=== PATIENT | male | born 1935 | race Caucasian/White ===

== ENCOUNTER → 2016-10-03 16:55 | Outpatient (CLI) | payer MEDICARE, BC ==
[2015-11-18 10:11] VITALS: BMI 20.5
[~2016-10-03 16:55] MED LIST: ASPIRIN 81 MG E81 MG PO; ATENOLOL25 MG PO; CARAFATE1 G PO; COZAAR50 MG PO; FLOMAX0.4 MG PO; HYDROCODON-ACE1 EAC7 PO; LASIX20 MG PO; LEVAQUIN500 MG PO; NEXIUM40 MG PO; NITROSTAT0.4 MG SL; OXYCODONE HCL5 MG PO; PLAVIX75 MG PO; POLYGESIC 5/5001 CAP PO; PRAVACHOL40 MG PO; PRAVASTATIN SOD10 MG PO; PRILOSEC20 MG PO; PROTONIX40 MG PO; TENORMIN25 MG PO; TENORMIN50 MG PO; VITAMIN B COMPL1 TA1 PO; VITAMIN B-12500 MCG PO; ZANTAC150 MG PO
== END | disposition home or self-care (01) ==
LOC: D.LABREF 16:55
DX: R31.9 Hematuria, unspecified (principal)

== ENCOUNTER → 2016-10-28 15:32 | Outpatient (CLI) | payer MEDICARE, BC ==
[2015-11-18 10:11] VITALS: BMI 20.5
[2016-10-28 21:05] LABS: APPEARANCE CLEAR (CLEAR); BILIRUBIN NEGATIVE (NEGATIVE); COLOR YELLOW (YELLOW); GLUCOSE NEGATIVE (NEGATIVE); KETONE NEGATIVE (NEGATIVE); LEUKOCYTE ESTERASE NEGATIVE (NEGATIVE); NITRITE NEGATIVE (NEGATIVE); PROTEIN NEGATIVE (NEGATIVE); UROBILINOGEN NORMAL (NORMAL)
== END | disposition home or self-care (01) ==
LOC: D.LABREF 15:32
PROVIDERS: Student in an Organized Health Care Education/Training Program
DX: R78.81 Bacteremia (principal)

== ENCOUNTER 2017-03-08 13:50 | Observation (INO) | payer MEDICARE, BC ==
[~2017-03-08] VITALS: Ht 172.7 cm; Wt 63.6 kg
--- NOTE | ~2017-03-08 | HEMODYNAMI ---
PATIENT:OPAL GR MEDICAL RECORD: [id number] : 31 LOCATION:[facility] D.[address] [facility]# [id number] ADMISSION DATE: 03/08/17 Generatedon:03/11/20178:51 Patient name: OPAL GR Patient #: [id number] SSN: [id number] : 1935 Date of study: 03/11/2017 Page: Of Hemodynamic Procedure Report Patient Data Patient Demographics Procedure consent was obtained First Name: OPAL Gender: Male Last Name: MAILE : 1935 [facility] Initial: A Age: 81 year(s) Patient #: [id number] Race: SSN: [id number] Additional ID: [id number] Contact details [address]: [address] [place] [address] State: [place] City: [place] Zip code: [address] Admission Admission Data Admission Date: 03/08/2017 Admission Time: 15:13 Arrival Date: 03/08/2017 Arrival Time: 15:13 Admit Source: Other Insurance Payor: Medicare Room #: D.2115 Lab Results Lab Result Date: 03/11/2017 Lab Result Time: 0:00 Biochemistry Name Units Result Min Max BUN mg/dl 35 --(----)-* 7 18 Creatinine mg/dl 1.9 --(----)-* 0.6 1.3 CBC Name Units Result Min Max Hemoglobin g/dl 11.1 *-(----)-- 13.5 17.5 Procedure Procedure Types Cath Procedure PCI Procedure Coronary Stent Initial Miscellaneous Procedures Moderate Sedation up to 30 minutes Procedure Description Procedure Date Procedure Date: 03/11/2017 Procedure Start Time: 8:31 Procedure End Time: 8:45 Procedure Staff Name Function David Mustafa MD Performing Physician Brooke Mckeon RT Scrub Vidhi Hand RN Nurse Nuria Arroyo RT Monitor Procedure Data Cath Procedure Fluoroscopy Diagnostic fluoroscopy Total fluoroscopy Time: 3.7 time: 3.7 min min Diagnostic fluoroscopy Total fluoroscopy dose: 257 dose: 257 mGy mGy Contrast Material Contrast Material Type Amount (ml) Isovue 300 47 Entry Location Entry Primary Successful Side Size Upsize Upsize Entry Closure Succes sful Closure Location (Fr) 1 (Fr) 2 (Fr) Remarks Device Remarks Femoral Right 6 Fr Exoseal artery Short Estimated blood loss: 5 ml Procedure Complications No complications Procedure Medications Medication Administration Route Dosage Oxygen NC 2 l/min Lidocaine 2% added to field 20 Heparin Flush Bag added to field 2 bags (1000units/500ml NS) 0.9% NaCl I.V. 100 ml/hr Versed I.V. 1 mg Fentanyl I.V. 50 mcg Heparin Bolus I.V. 4000 units Hemodynamics Rest HGB: 11.1 (g/dl) Heart Rate: 64 (bpm) Snapshots Pre Cath Intra NCS Post Cath Vital Signs Time Heart Resp SPO2 NIBP (mmHg) Rhythm Pain Sedation Rate (ipm) (%) Status Level (bpm) 8:21:34 62 18 100 192/75(148) NSR 0 (11) 10(A) , No pain 8:26:01 63 15 100 191/79(131) NSR 0 (11) 10(A) , No pain 8:30:33 61 18 100 156/61(112) NSR 0 (11) 10(A) , No pain 8:34:55 64 17 100 137/57(102) NSR 0 (11) 9(A) , No pain 8:39:09 60 17 100 135/55(101) NSR 0 (11) 9(A) , No pain 8:43:25 61 17 100 120/50(92) NSR 0 (11) 9(A) , No pain 8:50:21 64 16 100 157/63(132) NSR 0 (11) 10(A) , No pain Medications Time Medication Route Dose Verified Delivered Reason Notes Effectiveness by by 8:20:30 Oxygen NC 2 David Mosher used for l/min Ramsey Hand RN procedure 8:25:36 Lidocaine 2% added 20ml David Hernandez for local to vial Ramsey Mustafa MD anesthetic field 8:25:43 Heparin Flush added 2 David Hernandez used for Bag to bags Ramsey Mustafa MD procedure (1000units/500ml field NS) 8:25:52 0.9% NaCl I.V. 100 David Mosher Per physician ml/hr Ramsey Hand RN 8:31:05 Versed I.V. 1 mg David Mosher for sedation Ramsey Hand RN 8:31:10 Fentanyl I.V. 50 David Mosher for sedation mcg Ramsey Hand RN 8:36:31 Heparin Bolus I.V. 4000 David Mosher for verifie d units Rasmey Hand RN anticoagulation with dr mustafa Procedure Log Time Note 8:04:10 Informed consent obtained and on chart 8:04:15 Diagnostic Cath Status : Elective 8:04:34 Vidhi Hand RN sent for patient. Start room use. 8:04:34 Time tracking: Regular hours 8:04:38 Plan of Care:Hemodynamics will remain stable., Cardiac rhythm will remain stable., Comfort level will be maintained., Respiratory function will remain adequate., Patient/ family verbilizes understanding of procedure., Procedure tolerated without complication., Recovers from procedure without complications.. 8:19:10 Patient received from Med II to CCL 2 Alert and oriented. Tansferred to table in Supine position. 8:19:12 Warm blankets applied, and avelino hugger turned on for patient comfort. 8:19:12 Correct patient and procedure confirmed by team. 8:19:13 ECG and BP/O2 sat monitors applied to patient. 8:19:17 Baseline sample Acquired. 8:19:17 Vital chart was started 8:19:22 Rhythm: sinus rhythm , paced 8:19:23 Full Disclosure recording started 8:19:27 H&P Date Dictated: 03/11/2017 Within 30 days and on chart.. 8:19:28 Pre-procedure instructions explained to patient. 8:19:29 Pre-op teaching completed and patient verbalized understanding. 8:19:30 Family in waiting room. 8:19:39 Patient NPO since Midnight. 8:20:06 Is the patient allergic to Iodine/contrast media? No. 8:20:09 Was the patient premedicated? No 8:20:10 Is patient on blood thinner?Yes 8:20:13 ACC The patient was administered the following blood thiners within the last 24 hours: ACCPlavix 8:20:30 Oxygen 2 l/min NC was administered by Buffie Hand RN; used for procedure; 8:22:12 Patient diabetic? No. 8:22:16 Previous problem with sedation/anesthesia? No ? 8:22:20 Snore? No 8:22:39 Sleep apnea? No 8:22:40 Deviated septum? No 8:22:42 Opens mouth fully? Yes 8:22:43 Sticks out tongue? Yes 8:22:46 Airway obstruction? No ? 8:22:49 Dentures? No ? 8:22:52 Pre procedure: right dorsailis pedis pulse 1+ Palpable, but thready & weak; easily obliterated 8:23:28 Patient pain scale 0/10 ?. 8:23:34 IV patent on arrival in left forearm with 0.9% NaCl at [facility]. 8::56 Lab Result : BUN 35 mg/dl 8::56 Lab Result : Hemoglobin 11.1 g/dl 8::56 Lab Result : Creatinine 1.9 mg/dl 8::56 Hemodynamic formulas in Rest were re-calculated based on hemoglobin value from 03/11/2017 12:00:00 AM 8:24:39 Lab results completed and on chart. 8:24:44 Right groin area was prepped with chlora-prep and draped in sterile fashion 8:24:45 Alarms reviewed by R. N. 8:24:45 Sharps counted by scrub and verified by R.N. 8:25:36 Lidocaine 2% 20ml vial added to field was administered by David Mustafa MD; for local anesthetic; 8:25:43 Heparin Flush Bag (1000units/500ml NS) 2 bags added to field was administered by David Mustafa MD; used for procedure; 8:25:52 0.9% NaCl 100 ml/hr I.V. was administered by Vidhi Hand RN; Per physician; 8:27:48 Physician arrived 8:27:48 --------ALL STOP TIME OUT------ 8:27:49 Final Timeout: patient, procedure, and site verified with staff and physician. All members of the team are in agreement. 8:27:51 Right groin site verified by team. 8:27:54 Physical assessment completed. ASA score P 2 - A patient with mild systemic disease as per David Mustafa MD. 8:27:57 Sedation plan: IV Moderate Sedation Versed, Fentanyl 8:29:33 Use device set Femoral PCI 8:29:35 Acist Syringe opened to sterile field. 8:29:35 Acist Hand Control opened to sterile field. 8:29:35 Bag Decanter opened to sterile field. 8:29:36 Medline Cath Pack opened to sterile field. 8:29:36 Terumo 6Fr [place] Sheath opened to sterile field. 8:29:37 St Kunal 260cm J .035 wire opened to sterile field. 8:29:37 Merit BasixCompak Inflation Kit opened to sterile field. 8:29:37 Acist Manifold opened to sterile field. 8:29:38 Tegaderm 4 x 4 opened to sterile field. 8:30:00 Medtronic Launcher 6Fr HS II SH guide catheter opened to sterile field. 8:30:01 Pace Whisper J 300cm 0.014 guide wire opened to sterile field. 8:30:05 Procedure started. 8:31:05 Versed 1 mg I.V. was administered by Vidhi Hand RN; for sedation; 8:31:10 Fentanyl 50 mcg I.V. was administered by Vidhi Hand RN; for sedation; 8:31:52 Local anesthetic to right femoral artery with Lidocaine 2% by David Mustafa MD.INITIAL ACCESS ONLY 8:36:31 Heparin Bolus 4000 units I.V. was administered by Vihdi Hand RN; for anticoagulation; verified with dr mustafa 8:36:59 A 6 Fr Short sheath was inserted into the Right Femoral artery 8:37:06 6 Fr hs 2 sh guide catheter was inserted over the wire 8:37:13 whisper wire advanced. 8:40:51 Inflation Number: 1 A Giuseppe OTW 2.25 x 15 stent was prepped and advanced across the Dist RCA. The stent was deployed at 17 ELYSE for 0:10 (min:sec). 8:41:05 Inflation number: 2 The stent balloon was then re-inflated across the Dist RCA to 19 ELYSE for 0:10 (min:sec). 8:41:22 Inflation number: 1 The stent balloon was then re-inflated across the Mid RCA to 19 ELYSE for 0:10 (min:sec). 8:41:29 Inflation number: 2 The stent balloon was then re-inflated across the Mid RCA to 19 ELYSE for 0:10 (min:sec). 8:41:43 Inflation number: 3 The stent balloon was then re-inflated across the Mid RCA to 19 ELYSE for 0:10 (min:sec). 8:42:14 Inflation number: 3 The stent balloon was then re-inflated across the Dist RCA to 13 ELYSE for 0:13 (min:sec). 8:43:12 Inflation number: 1 The stent balloon was then re-inflated across the Prox RCA to 13 ELYSE for 0:10 (min:sec). 8:43:31 Stent catheter was removed intact over wire. 8:43:32 Wire removed. 8:43:32 Guide catheter removed. 8:43:39 Cordis 6Fr Exoseal opened to sterile field. 8:43:49 Sheath removed intact; hemostasis achieved with Exoseal to the Right Femoral artery. 8:43:52 Procedure ended.(Physican Out) 8:44:15 Fluoroscopy time 03.70 minutes. 8:45:02 Flurop Dose total: 257 8:45:02 Fluoroscopy dose: 257 mGy 8:45:08 Contrast amount:Isovue 300 47ml. 8:45:10 Sharps counted by scrub and verified by R.N. 8:45:10 Insertion/operative site no bleeding no hematoma. 8:45:13 Post-op/insertion site Right Femoral artery dressed using a 4 x 4 and Tegaderm. 8:45:16 Post right femoral artery:stable 8:45:18 Post Procedure Pulses reassessed and unchanged 8:45:21 Post procedure rhythm: unchanged. 8:45:23 Estimated blood loss: 5 ml 8:45:24 Post procedure instruction explained to patient.Patient verbalizes understanding. 8:45:25 Patient needs reinforcement of post procedure teaching. 8:45:39 Procedure type changed to Cath procedure, PCI procedure, Coronary Stent Initial, Miscellaneous Procedures, Moderate Sedation up to 30 minutes 8:45:40 Procedure and supply charges have been captured, reviewed, submitted and are correct. 8:45:44 Procedure Complication : No complications 8:45:46 Vital chart was stopped 8:45:47 See physician's report for complete and final results. 8:45:51 Report given to [facility]. 8:45:53 Patient transfered to [facility] with Stretcher. 8:45:55 Procedure ended. 8:45:55 Full Disclosure recording stopped 8:46:14 ACC-PCI Only Patient was given prescriptions, or instructed by David Mustafa MD to start/continue the following medications upon discharge: Plavix 8:46:16 End room use (Document Last) Intervention Summary Intervention Notes Time ActionType Lesion and Equipment Action# Pressure Duration Attributes Used 8:40:51 Place stent Dist RCA [place] OTW 1 17 00:10 2.25 x 15 stent 8:41:05 Reinflate Dist RCA Giuseppe OTW 2 19 00:10 stent 2.25 x 15 balloon stent 8:41:22 Reinflate Mid RCA [place] OTW 1 19 00:10 stent 2.25 x 15 balloon stent 8:41:29 Reinflate Mid RCA [place] OTW 2 19 00:10 stent 2.25 x 15 balloon stent 8:41:43 Reinflate Mid RCA Giuseppe OTW 3 19 00:10 stent 2.25 x 15 balloon stent 8:42:14 Reinflate Dist RCA [place] OTW 3 13 00:13 stent 2.25 x 15 balloon stent 8:43:12 Reinflate Prox RCA Giuseppe OTW 1 13 00:10 stent 2.25 x 15 balloon stent Device Usage Item Name Manufacture Quantity Catalog Hospital Part Current Minimal Lot# / Number Charge Number Stock Stock Serial# Code Acist Acist 1 45939 [id number] 154918 265525 20 Syringe [employer] Inc Acist Hand Acist 1 91182 918102 647908 813070 5 Arachno [employer] Bag Microtek 1 2002S 610337 15434 286646 5 Nanosphere. Medline Cardinal 1 [id number] 702160 70134 715987 5 My Own Crown Terumo 6Fr Terumo 1 [id number] 457874 952511 046534 [address] [place] [address] St Kunal 1 984147 941440 357256 704497 30 260cm J .035 wire Merit Merit 1 [id number] 336600 343692 470982 15 ebookpie Medical Inflation Kit Acist Acist 1 34184 826471 844859 307063 5 Templafy [employer] Inc Tegaderm 4 3M 1 1626W 683419 544285 679739 5 x 4 Medtronic Medtronic 1 [id number] 350489 97243 677852 1 Launcher 6Fr HS II SH guide catheter Pace Sanjeev 1 [id number] 502847 954300 479033 5 [facility] J Vascular 300cm 0.014 guide wire Villanova OTW Medtronic 1 [id number] 410892 63252 014686 5 [id number] 2.25 x 15 stent Cordis 6Fr Cardinal 1 EX600 365830 585299 021782 10 [facility] Signature Audit [place] Stage Time Signature Unsigned Intra-Procedure 03/11/2017 Nuria Arroyo 8:51:16 AM RT(R) Signatures Monitor : Nuria Arroyo RT Signature : Date : Time : [place] [id number] [place] [address]
--- NOTE | ~2017-03-08 | DS ---
PATIENT:OPAL SCHWAB :31 MEDICAL RECORD: [id number] DISCHARGE SUMMARY ADMISSION DATE: 03/08/17 DISCHARGE DATE: DATE OF DISCHARGE: 03/11/2017 DISCHARGE DIAGNOSES: 1. PTCA stent LAD. 2. PTCA stent RCA. 3. Unstable angina. 4. Coronary artery disease. 5. Hypertension. 6. Hyperlipidemia. HOSPITAL COURSE: Mr. Schwab presents with unstable angina, found to have 2-vessel coronary disease of the LAD and RCA, underwent successful PTCA stent of both territories, had an uneventful postop course, discharged home with the addition of aspirin and Plavix to his medical regimen. He will follow up with [facility] in 1 month. TRANSINT:[id number] Voice Confirmation ID: [id number] DOCUMENT ID: [id number] KASIE SCHNEIDER MD CC: [id number] DICTATION DATE: 03/11/1748 EMERGENCY OPERATOR: 03/11/17 0940 ADM IN [facility] [address] [id number]
--- NOTE | ~2017-03-08 | HP ---
PATIENT: OPAL SCHWAB MEDICAL RECORD: [id number] ACCOUNT: [id number] LOCATION:[address] : 31 ADMISSION DATE: 03/08/17 HISTORY AND PHYSICAL EXAMINATION DIAGNOSES: 1. Angina. 2. Coronary artery disease. 3. Previous percutaneous transluminal coronary angioplasty stent. 4. Hypertension. 5. Hyperlipidemia. HISTORY OF PRESENT ILLNESS: Mr. Schwab is status post PTCA stent approximately 4-5 years ago. He had 7 hours of chest discomfort yesterday, it escalated. He received sublingual nitros, his pain went away. His troponin is normal. He has not had any recurrence of the pain. PHYSICAL EXAMINATION: GENERAL APPEARANCE: Well-nourished, well-developed, appears stated age. Level of distress, comfortable. PSYCHIATRIC: Mental status, alert, normal affect. Orientation, oriented to time, place and person. EYES: Lids and conjunctiva, noninjected. No discharge, no pallor. ENT: Lips, teeth, gums, normal dentition. Oropharynx, no cyanosis, no pallor. NECK: Carotid arteries, bilateral normal upstroke, no bruits, no thrills. JUGULAR VEINS: No jugular venous pressure or distention. CERVICAL LYMPH NODES: Nontender, nonenlarged. THYROID: Not enlarged. Nontender. No nodules. LUNGS: Respiratory effort, unlabored. CHEST: Normal curvature. No thoracic deformity. No chest wall tenderness. Percussion, resonant. Auscultation, clear. No wheezes, no rales, no rhonchi. CARDIOVASCULAR: Precordial exam, nondisplaced. No heaves or pericardial thrills. Rate and rhythm, regular. Heart sounds, normal S1, normal S2. No S3, no gallop, no rub. Systolic murmur, not heard. Diastolic murmur, not heard. EXTREMITIES: No cyanosis, no edema. Peripheral pulses, full and equal in all extremities, except as noted. No bruits appreciated. ABDOMEN: Soft, nondistended. Normal aorta. No bruit. Nontender. No masses. Liver, nontender, no hepatomegaly. Spleen, nontender, no splenomegaly. MUSCULOSKELETAL: No joint tenderness. No joint swelling. No erythema. NEUROLOGICAL: Normal gait, normal strength, normal tone. SKIN: Warm and dry. REVIEW OF SYSTEMS: The patient reports easy bruising but reports no swollen glands. The patient reports no fever, no night sweats, no significant weight gain, no significant weight loss. No significant exercise tolerance. The patient reports no dry eyes, no irritation, no vision change. Patient reports no difficulty hearing and no ear pain. Patient reports no frequent nose bleeds or nose and sinus problems. Patient reports on arm pain on exertion. No shortness of breath while lying down. No history of heart murmur. Patient reports no cough, no wheezing or coughing up blood. Patient reports no abdominal pain, no vomiting. Normal appetite. No diarrhea and not vomiting blood. No nausea and no constipation. Patient reports no incontinence. No difficulty urinating. No hematuria. No increased frequency. Patient reports no muscle aches. No weakness, no arthralgias, no back pain. No swelling of the extremities. Patient reports no abnormal mole, no jaundice, no rashes. Reports HISTORY AND PHYSICAL [id number] GEASLIN,OPAL A no loss of consciousness. No weakness and no numbness. No seizures, dizziness, or headaches. The patient reports no depression, no sleep disturbance, feeling safe in a relationship and no alcohol abuse. Patient reports on fatigue. Reports no runny nose or sinus pressure. No itching, no hives, and no frequent sneezing. OVERALL IMPRESSIONS: Unstable angina for 7 hours yesterday. Most likely, he has recurrent hemodynamically significant coronary artery disease. We will proceed with coronary angiography. Further care depends upon findings of the angiography. TRANSINT:[id number] Voice Confirmation ID: [id number] DOCUMENT ID: [id number] KASIE SCHNEIDER MD CC: [id number] DICTATION DATE: 03/09/17937 [employer]ER: 03/09/17957 ADM IN [place] [id number] [place] [id number]
--- NOTE | ~2017-03-08 | HEMODYNAMI ---
PATIENT:OPAL GR MEDICAL RECORD: [id number] : 31 LOCATION:[facility] D.2115 [facility]# [id number] ADMISSION DATE: 03/08/17 Generatedon:03/10/20178:59 Patient name: OPAL GR Patient #: [id number] SSN: [id number] : 1935 Date of study: 03/10/2017 Page: Of Hemodynamic Procedure Report Patient Data Patient Demographics Procedure consent was obtained First Name: OPAL Gender: Male Last Name: MAILE : 1935 [facility] Initial: A Age: 81 year(s) Patient #: [id number] Race: SSN: [id number] Additional ID: [id number] Contact details [address]: [address] [place] [address] State: [place] City: [place] Zip code: [address] Admission Admission Data Admission Date: 03/08/2017 Admission Time: 15:13 Arrival Date: 03/08/2017 Arrival Time: 15:13 Admit Source: Other Insurance Payor: Medicare Room #: D.2115 Lab Results Lab Result Date: 03/10/2017 Lab Result Time: 0:00 Biochemistry Name Units Result Min Max BUN mg/dl 27 --(----)-* 7 18 Creatinine mg/dl 2 --(----)-* 0.6 1.3 CBC Name Units Result Min Max Hemoglobin g/dl 12.1 *-(----)-- 13.5 17.5 Procedure Procedure Types Cath Procedure Diagnostic Procedure LHC LHC w/Coronaries PCI Procedure Coronary Stent Initial Miscellaneous Procedures Moderate Sedation up to 30 minutes Peripheral Cath Diagnostic Procedure Cath Peripheral Renal Arteriogram Procedure Description Procedure Date Procedure Date: 03/10/2017 Procedure Start Time: 8:38 Procedure End Time: 8:55 Procedure Staff Name Function David Mustafa MD Performing Physician Maximo Potts RN Nurse Nuria Arroyo RT Monitor Deuce Fishman RT Scrub Indication Angina Procedure Data Cath Procedure Fluoroscopy Diagnostic fluoroscopy Total fluoroscopy Time: 4.9 time: 4.9 min min Diagnostic fluoroscopy Total fluoroscopy dose: 128 dose: 128 mGy mGy Contrast Material Contrast Material Type Amount (ml) Isovue 300 105 Entry Location Entry Primary Successful Side Size Upsize Upsize Entry Closure Land ccessful Closure Location (Fr) 1 (Fr) 2 (Fr) Remarks Device Remarks Radial Right 6 Fr Mechanical artery Short Compression Estimated blood loss: 5 ml Diagnostic catheters Device Type Used For End Catheter Placement Diagnostic Terumo Multi-vessel Optitorque 5Fr [place] 4.5 Angiography catheter Cordis Aqua 5Fr Bran Multi-vessel 125cm catheter Angiography Procedure Complications No complications Procedure Medications Medication Administration Route Dosage Oxygen NC 2 l/min Heparin Flush Bag added to field 2 bags (1000units/500ml NS) 0.9% NaCl I.V. 100 ml/hr Fentanyl I.V. 50 mcg Versed I.V. 1 mg Heparin Bolus I.V. 4000 units Radial Cocktail added to field 1 syringe (Verapomil 2mg/Nitro 400mcg/Heparin 1500units) Radial Cocktail I.A. 1 syringe (Verapomil 2mg/Nitro 400mcg/Heparin 1500units) Plavix P.O. 75 mg Hemodynamics Rest HGB: 12.1 (g/dl) Heart Rate: 72 (bpm) Pressure Samples Time Site Value (mmHg) Purpose Heart Use Rate(bpm) 8:41 LV 126/6,7 Snapshot 96 Snapshots Pre Cath Intra NCS Post Cath Vital Signs Time Heart Resp SPO2 NIBP (mmHg) Rhythm Pain Sedation Rate (ipm) (%) Status Level (bpm) 8:26:38 71 17 100 205/84(154) NSR 0 (11) 10(A) , No pain 8:31:08 72 17 100 177/74(137) NSR 0 (11) 10(A) , No pain 8:35:32 72 19 99 159/66(108) NSR 0 (11) 9(A) , No pain 8:39:46 75 17 99 146/66(114) NSR 0 (11) 9(A) , No pain 8:44:15 62 18 99 103/45(81) NSR 0 (11) 9(A) , No pain 8:48:23 59 19 98 122/56(99) NSR 0 (11) 9(A) , No pain 8:52:39 59 19 99 131/54(107) NSR 0 (11) 9(A) , No pain 8:57:44 59 18 100 173/73(134) NSR 0 (11) 9(A) , No pain Medications Time Medication Route Dose Verified Delivered Reason Notes Effectiveness by by 8:30:44 Oxygen NC 2 l/min Maximo Marsh Per physician Delroy Potts RN RN 8:30:54 Heparin Flush added 2 bags Maximo Marsh used for Bag to Delroy Potts RN procedure (1000units/500ml field RN NS) 8:31:05 0.9% NaCl I.V. 100 Maximo Marsh Per physician ml/hr Delroy Potts RN RN 8:33:16 Fentanyl I.V. 50 mcg Maximo Marsh for sedation Delroy Potts RN RN 8:33:24 Versed I.V. 1 mg Maximo Marsh for sedation Delroy Potts RN RN 8:38:58 Radial Cocktail added 1 Maximo Marsh used for (Verapomil to syringe Delroy Potts RN procedure 2mg/Nitro field RN 400mcg/Heparin 1500units) 8:40:07 Radial Cocktail I.A. 1 Maximo Bermudezrey for (Verapomil syringe Delroy Mustafa MD vasodilation 2mg/Nitro RN 400mcg/Heparin 1500units) 8:46:46 Heparin Bolus I.V. 4000 Maximo Marsh for units Delroy Potts RN anticoagulation RN 8:59:08 Plavix P.O. 75 mg Maximo Marsh for Delroy Potts RN antiplatelet RN therapy Procedure Log Time Note 7:56:30 Informed consent obtained and on chart 7:56:36 Diagnostic Cath Status : Elective 7:57:09 Indication : Angina 7:57:17 Admit Source: Other 7:57:22 Arrival Date: 03/08/2017 3:13:00 PM 7:57:29 Insurance Payor : Medicare 8:02:07 Lab Result : BUN 27 mg/dl 8:02:07 Lab Result : Hemoglobin 12.1 g/dl 8:02:07 Lab Result : Creatinine 2 mg/dl 8:02:12 Maximo Potts RN sent for patient. Start room use. 8:02:13 Time tracking: Regular hours 8:02:19 Plan of Care:Hemodynamics will remain stable., Cardiac rhythm will remain stable., Comfort level will be maintained., Respiratory function will remain adequate., Patient/ family verbilizes understanding of procedure., Procedure tolerated without complication., Recovers from procedure without complications.. 8:13:55 Patient received from Med II to CCL 3 Alert and oriented. Tansferred to table in Supine position. 8:13:56 Warm blankets applied, and avelino hugger turned on for patient comfort. 8:13:57 Correct patient and procedure confirmed by team. 8:13:57 ECG and BP/O2 sat monitors applied to patient. 8:24:15 Vital chart was started 8:26:57 Baseline sample Acquired. 8:27:00 Rhythm: sinus rhythm 8:27:02 Full Disclosure recording started 8:27:06 H&P Date Dictated: 03/10/2017 New H&P dictated by physician.. 8:27:08 Pre-procedure instructions explained to patient. 8:27:08 Pre-op teaching completed and patient verbalized understanding. 8:27:15 Family in waiting room. 8:27:20 Patient NPO since Midnight. 8:27:28 Is the patient allergic to Iodine/contrast media? No. 8:27:29 Was the patient premedicated? No 8:29:01 Is patient on blood thinner?Yes 8:29:02 ACC The patient was administered the following blood thiners within the last 24 hours: ACCPlavix 8:29:02 Patient diabetic? No. 8:29:05 Previous problem with sedation/anesthesia? No ? 8:29:07 Snore? No 8:29:08 Sleep apnea? No 8:29:09 Deviated septum? No 8:29:10 Opens mouth fully? Yes 8:29:10 Sticks out tongue? Yes 8:29:12 Airway obstruction? No ? 8:29:15 Dentures? No ? 8:29:18 Pre procedure: right dorsailis pedis pulse 1+ Palpable, but thready & weak; easily obliterated 8:29:29 Patient pain scale 0/10 ?. 8:29:34 IV patent on arrival in left forearm with 0.9% NaCl at O. 8:29:37 Lab results completed and on chart. 8:29:41 Right Radial & Right Groin area was prepped with chlora-prep and draped in sterile fashion 8:29:41 Alarms reviewed by R. N. 8:29:42 Sharps counted by scrub and verified by R.N. 8:30:44 Oxygen 2 l/min NC was administered by Maximo Potts RN; Per physician; 8:30:54 Heparin Flush Bag (1000units/500ml NS) 2 bags added to field was administered by Maximo Potts RN; used for procedure; 8:31:05 0.9% NaCl 100 ml/hr I.V. was administered by Maximo Potts RN; Per physician; 8:32:33 Physician arrived 8:32:33 --------ALL STOP TIME OUT------ 8:32:33 Final Timeout: patient, procedure, and site verified with staff and physician. All members of the team are in agreement. 8:32:35 Right Radial & Right Groin site verified by team. 8:32:38 Physical assessment completed. ASA score P 2 - A patient with mild systemic disease as per David Mustafa MD. 8:32:42 Sedation plan: IV Moderate Sedation Versed, Fentanyl 8:32:48 Use device set Radial Dx 8:32:49 Acist Syringe opened to sterile field. 8:32:50 Medline Cath Pack opened to sterile field. 8:32:50 Bag Decanter opened to sterile field. 8:32:50 Terumo 6Fr Slender Glidesheath opened to sterile field. 8:32:51 St Kunal 260cm J .035 wire opened to sterile field. 8:32:51 Acist Hand Control opened to sterile field. 8:32:51 Acist Manifold opened to sterile field. 8:32:51 Tegaderm 4 x 4 opened to sterile field. 8:32:52 MBrace Wrist Support opened to sterile field. 8:33:16 Fentanyl 50 mcg I.V. was administered by Maximo Potts RN; for sedation; 8:33:24 Versed 1 mg I.V. was administered by Maximo Potts RN; for sedation; 8:36:13 Zero performed for pressure channel P1 8:38:47 Procedure started. 8:38:55 Local anesthetic to right radial artery with Lidocaine 2% by David Mustafa MD.INITIAL ACCESS ONLY 8:38:58 Radial Cocktail (Verapomil 2mg/Nitro 400mcg/Heparin 1500units) 1 syringe added to field was administered by Maximo Potts RN; used for procedure; 8:39:23 A 6 Fr Short sheath was inserted into the Right Radial artery 8:40:07 Radial Cocktail (Verapomil 2mg/Nitro 400mcg/Heparin 1500units) 1 syringe I.A. was administered by David Mustafa MD; for vasodilation; 8:41:41 A Diagnostic [employer] Optitorque 5Fr [place] 4.5 catheter was advanced over the wire and used for Multi-vessel Angiography. 8:41:56 LV hemodynamics recorded. 8:41:57 LV gram done using BOSTON 8:42:00 Injector settings: Ml/sec: 5, Volume: 15, 8:42:07 EF : 60 % 8:42:16 LCA angiography performed. 8:42:19 Injector settings: Ml/sec: 3, Volume: 6, 8:43:27 RCA angiography performed. 8:43:30 Injector settings: Ml/sec: 3, Volume: 6, 8:43:40 Selero BasixCompak Inflation Kit opened to sterile field. 8:43:41 Pace Whisper J 300cm 0.014 guide wire opened to sterile field. 8:43:58 Catheter removed. 8:44:51 A Cordis Aqua 5Fr Bran 125cm catheter was advanced over the wire and used for Multi-vessel Angiography. 8:45:15 Bilateral renal angiography performed. 8:45:52 Injector settings: Ml/sec: 3, Volume: 6, 8:45:57 Catheter removed. 8:46:20 Cordis 6FR XBLAD 3.5 guide catheter opened to sterile field. 8:46:31 Proceeding to intervention. 8:46:40 6 Fr xblad 3.5 guide catheter was inserted over the wire 8:46:46 Heparin Bolus 4000 units I.V. was administered by Maximo Potts RN; for anticoagulation; 8:47:41 whisper wire advanced. 8:49:46 Inflation number: 1 A ESTmob [place] 2.0 X 30 balloon was prepped and advanced across the Mid LAD, then inflated to 15 ELYSE for 0:10 (min:sec). 8:50:17 Balloon removed over the wire. 8:52:22 Inflation Number: 2 A [place] OTW 2.25 x 38 stent was prepped and advanced across the Mid LAD. The stent was deployed at 13 ELYSE for 0:10 (min:sec). 8:53:04 Stent catheter was removed intact over wire. 8:53:05 Wire removed. 8:53:06 Guide catheter removed. 8:53:38 Terumo TR Band Standard opened to sterile field. 8:53:57 Sheath removed intact; hemostasis achieved with Mechanical Compression to the Right Radial artery. 8:54:00 Procedure ended.(Physican Out) 8:54:35 Fluoroscopy time 04.90 minutes. 8:54:42 Fluoroscopy dose: 128 mGy 8:54:42 Flurop Dose total: 128 8:54:46 Contrast amount:Isovue 300 105ml. 8:54:48 Sharps counted by scrub and verified by R.N. 8:54:50 TR band inflated with 12cc of air. 8:54:51 Insertion/operative site no bleeding no hematoma. 8:54:55 Post right radial artery:stable 8:54:56 Post Procedure Pulses reassessed and unchanged 8:54:59 Post procedure rhythm: unchanged. 8:55:01 Estimated blood loss: 5 ml 8:55:02 Post procedure instruction explained to patient.Patient verbalizes understanding. 8:55:03 Patient needs reinforcement of post procedure teaching. 8:55:34 Procedure type changed to Cath procedure, Diagnostic procedure, LHC, LHC w/Coronaries, PCI procedure, Coronary Stent Initial, Miscellaneous Procedures, Moderate Sedation up to 30 minutes, Peripheral Cath Diagnostic Procedure, Cath Peripheral, Renal Arteriogram 8:55:36 Procedure and supply charges have been captured, reviewed, submitted and are correct. 8:55:40 Procedure Complication : No complications 8:55:43 Vital chart was stopped 8:55:43 See physician's report for complete and final results. 8:55:44 Report given to Med II. 8:55:47 Patient transfered to Med II with Stretcher. 8:55:49 Procedure ended. 8:55:49 Full Disclosure recording stopped 8:56:25 ACC-PCI Only Patient was given prescriptions, or instructed by David Mustafa MD to start/continue the following medications upon discharge: Plavix 8:57:12 End room use (Document Last) 8:59:08 Plavix 75 mg P.O. was administered by Maximo Potts RN; for antiplatelet therapy; Intervention Summary Intervention Notes Time ActionType Lesion and Equipment Action# Pressure Duration Attributes Used 8:49:46 Inflate Mid LAD [place] 1 15 00:10 balloon Sci [place] 2.0 X 30 balloon 8:52:22 Place stent Mid LAD Giuseppe OTW 2 13 00:10 2.25 x 38 stent Device Usage Item Name Manufacture Quantity Catalog Number Hospital Part Current Mini [facility] Lot# / Charge Number Stock Stock Serial# Code Acist Acist 1 03345 [id number] 508435 871236 20 Syringe Medical Systems Inc Medline Cardinal 1 [id number] 377865 44851 686351 5 Cath Pack Health Bag Microtek 1 2002S 809179 39266 097431 5 Offerti [employer] Inc. Terumo 6Fr Terumo 1 [id number] 706431 869523 101968 [address] Kunal 1 773263 383000 140615 857003 30 260cm J .035 wire Acist Hand Acist 1 93902 900782 849224 069333 5 Control Medical Systems Inc Acist Acist 1 11431 096107 099774 290849 5 Manifold Medical Systems Inc Tegaderm 4 3M 1 1626W 269635 838051 791494 5 x 4 MBrace Advanced 1 140-0250-00 289000 72434 515866 5 Wrist Vascular Support Dynamics Diagnostic Terumo 1 27-9766 052420 879013 817207 5 Terumo Optitorque 5Fr [place] 4.5 catheter Merit Merit 1 CF6051 154277 758386 571426 15 BasixCompak Medical Inflation Kit Pace Pace 1 [id number] 751394 624426 541448 5 Whisper J Vascular 300cm 0.014 guide wire Cordis Aqua Cardinal 1 [id number] 165639 578400 326367 5 5Fr Health Bran 125cm catheter Cordis 6FR Cardinal 1 [id number] 612716 155057 229877 10 XBLAD 3.5 Health guide catheter Quincy Sci Quincy 1 [id number] 599052 953151 041728 1 [id number] [place] Scientific 2.0 X 30 balloon [place] OTW Medtronic 1 [id number] 509911 54528 278144 5 [id number] 2.25 x 38 stent Terumo TR Terumo 1 [id number] 000984 496983 060016 40 Band Standard Signature Audit [place] Stage Time Signature Unsigned Intra-Procedure 03/10/2017 Nuria Arroyo 8:59:28 AM RT(R) Signatures Monitor : Nuria Arroyo RT Signature : Date : Time : [facility] [address] [place] [address]
--- NOTE | ~2017-03-08 | OP ---
PATIENT NAME: OPAL GR MEDICAL RECORD: [id number] :31 LOCATION:D.M2 D.2115 ADMISSION DATE:03/08/17 SURGEON: KASIE SCHNEIDER MD DATE OF OPERATION: 03/10/2017 PROCEDURES: 1. PTCA stent LAD. 2. Left heart catheterization. 3. Selective coronary angiography. 4. Left ventriculogram. 5. Bilateral selective renal artery stenosis. INDICATION: Angina and coronary artery disease, renovascular hypertension with renal insufficiency. PROCEDURE IN DETAIL: After informed consent was obtained and after detailed explanation of risks, benefits as well as alternative therapies, the patient elected to proceed with angiogram and angioplasty. The right radial area is prepped and draped in normal sterile fashion. The right radial artery was cannulated via modified Seldinger technique with placement of 6-Latvian sheath. All catheters exchanged through this sheath. FINDINGS: 1. 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 2. The left renal artery is a solitary artery off the aorta, there is no significant renal artery stenosis. 3. Left ventriculogram was performed in standard 30-degree BOSTON view, reveals preserved cardiac wall motion, ejection fraction 55% to 60%. SELECTIVE CORONARY ANGIOGRAPHY: 1. Left main is with no significant angiographic disease. 2. Left anterior descending has a long area of 80% stenosis throughout the mid vessel. 3. Left circumflex has a diffuse disease. The previously placed stents are widely patent. 4. The right coronary has previously placed stents. There is up to 80% in-stent restenosis in the mid vessel. PTCA STENT OF THE LAD: The stent used was a 2.25x38 mm Giuseppe. Result was 0% residual stenosis. OVERALL IMPRESSION: Successful percutaneous transluminal coronary angioplasty stent of the left anterior descending going from 80% initial stenosis to 0% residual stenosis. PLAN: PTCA stent of the RCA and right renal in the near future. TRANSINT:[id number] Voice Confirmation ID: [id number] DOCUMENT ID: [id number] OPERATIVE REPORT [id number] OPAL GR KASIE SCHNEIDER MD CC: [id number] DICTATION DATE: 03/10/17 0857 SLASHER TENDER: 03/10/17 0936 [facility] [place] [id number] [place] [address]
--- NOTE | ~2017-03-08 | OP ---
PATIENT NAME: OPAL GR MEDICAL RECORD: [id number] :31 LOCATION:D.M2 D.2115 ADMISSION DATE:03/08/17 SURGEON: KASIE SCHNEIDER MD DATE OF OPERATION: 03/11/2017 PROCEDURES: 1. PTCA stent RCA. 2. Selective coronary angiography. INDICATION: Angina and coronary artery disease. PROCEDURE IN DETAIL: After informed consent was obtained and after detailed explanation of risks, benefits as well as alternative therapies, the patient elected to proceed with angiogram and angioplasty. The right femoral area was prepped and draped in normal sterile fashion. The right femoral artery was cannulated via modified Seldinger technique with placement of 6-Syriac sheath. All catheters exchanged through this sheath. FINDINGS: The right coronary has 85% stenosis in the mid distal vessel. This was addressed with a 2.25 x 15 mm Medtronic [place]. Result was 0% residual stenosis. OVERALL IMPRESSION: Successful percutaneous transluminal coronary angioplasty stent of the right coronary artery going from 85% initial stenosis to 0% residual. TRANSINT:[id number] Voice Confirmation ID: [id number] DOCUMENT ID: [id number] KASIE SCHNEIDER MD CC: [id number] DICTATION DATE: 03/11/17 0849 CHAIR PAD MAKER: 03/11/17 0902 ADM IN [place] [address] [place] [address]
[2017-03-08 14:13] LABS: BASOPHILS 0.1 % (0-2); EOSINOPHILS 0.3 % (0-7); HEMATOCRIT 35.4 % (42.0-54.0); HEMOGLOBIN 12.1 g/dL (13.5-17.5); IMMATURE GRANULOCYTES 0.2 % (0-5); MCH 30.6 pg (26.0-34.0); MCHC 34.2 g/dL (31.0-37.0); MCV 89.6 fL (80.0-100.0); MEAN PLATELET VOLUME 9.2 fL (7.4-10.4); NEUTROPHILS 88.4 % (40-80); RBC 3.95 10x6/uL (4.20-6.10); RDW 12.2 % (11.5-14.5); WBC 13.1 10x3/uL (4.8-10.8)
[2017-03-08 14:22] LABS: PLATELET COUNT 291 10x3/uL (130-400)
[2017-03-08 14:32] LABS: ALBUMIN 3.7 g/dL (3.4-5.0); ALKALINE PHOSPHATASE 86 U/L (46-116); ALT (SGPT) 58 U/L (10-68); BILIRUBIN - TOTAL 0.54 mg/dL (0.2-1.3); CALC OSMOLALITY 275 mosm/kg (275-300); CALCIUM 8.9 mg/dL (8.5-10.1); CARBON DIOXIDE 21.4 mmol/L (21.0-32.0); CHLORIDE - SERUM 100 mmol/L (98-107); GLUCOSE 114 mg/dL (74-106); POTASSIUM - SERUM 4.6 mmol/L (3.5-5.1); PROTEIN - SERUM 7.6 g/dL (6.4-8.2); SODIUM 135 mmol/L (136-145); UREA NITROGEN 27 mg/dL (7-18); eGFR NON AFRICAN AMERICAN 34 mL/min (90-120)
[2017-03-08 14:44] LABS: CHOLESTEROL, TOTAL 141 mg/dL (0-200); CKMB 0.1 U/L (0.0-3.6); CREATINE KINASE 43 UL (21-232); HDL CHOLESTEROL 28 mg/dL (32-96); LDL CHOLESTEROL 91 mg/dL (0-100); LDL-HDL RATIO 3.3 ratio (1.5-3.5); TRIGLYCERIDE 112 mg/dL (30-200); TROPONIN-I < 0.017 ng/mL (0.000-0.060)
--- NOTE | 2017-03-08 16:27 | NUR ---
TRANSFER FROM ER BY W/C. BLANCHEINTED TO ROOM. CALL LIGHT IN REACH. WILL CONT. PLAN OF CARE.
[2017-03-08] MEDS ORDERED: OMEPRAZOLE20 M1 PO (16:38)
[2017-03-08] MEDS ORDERED: MEGACE40 MG PO (16:39)
[2017-03-08] MEDS ORDERED: LEVOTHYROXINE125 MCG PO (16:39)
[2017-03-08] MEDS ORDERED: CENTRUM SILVER1 TA1 PO (16:41)
[2017-03-08] MEDS ORDERED: NIASPAN500 MG PO (16:41)
[2017-03-08 16:43] VITALS: BP 203/74; Ht 172.7 cm; Wt 63.6 kg
[2017-03-08 16:50] VITALS: BP 203/74
[2017-03-08 18:31] LABS: CKMB 0.1 U/L (0.0-3.6); CREATINE KINASE 39 UL (21-232)
[2017-03-08 18:32] LABS: TROPONIN-I 0.016 ng/mL (0.000-0.060)
[2017-03-08 20:00] VITALS: BP 183/80
[2017-03-09 00:18] VITALS: BP 111/52
[2017-03-09 01:20] LABS: CREATINE KINASE 32 UL (21-232); TROPONIN-I 0.019 ng/mL (0.000-0.060)
[2017-03-09 04:24] VITALS: BP 119/50
--- NOTE | 2017-03-09 07:30 | NUR ---
RECEIVED PT IN BED AAOX4 RESP UNLABORED DENIES ANY NEEDS OR DISCOMFORT AT THIS TIME NAD NOTED
[2017-03-09 08:00] VITALS: BP 191/62
[2017-03-09 12:00] VITALS: BP 132/49
[2017-03-09 16:00] VITALS: BP 131/58
--- NOTE | 2017-03-09 19:45 | NUR ---
PT RESTING IN BED. ALERT/ORIENTED. NONLABORED RESPIRATIONS ON ROOM AIR. O2 AVAILABLE BUT PT DOES NOT FEEL HE NEEDS IT. PIV TO LEFT WRIST. PT WILL BE NPO AT MIDNIGHT FOR HEART CATH IN AM. CONSENTS SIGNED AND ON CHART. SEE ASSESSMENT. CPOC. CALL LIGHT IN REACH.
--- NOTE | 2017-03-09 21:00 | NUR ---
BEDTIME MED GIVEN. NO OTHER NEEDS. PT DRINKING COFFEE. CALL LIGHT IN REACH.
[2017-03-09 21:15] VITALS: BP 142/65
[2017-03-10 01:29] VITALS: BP 152/65
--- NOTE | 2017-03-10 02:56 | NUR ---
RESTING IN BED WITH NO DISTRESS. RESPS EVEN/NONLABORED. NPO FOR LHC IN AM. MONITOR AND CPOC.
[2017-03-10 04:36] VITALS: BP 135/58
--- NOTE | 2017-03-10 07:30 | NUR ---
RECEIVED PT IN BED EYES CLOSED RESP UNLABORED SKIN W/D COLOR WNL NAD NOTED
[2017-03-10 08:00] VITALS: BP 135/48
--- NOTE | 2017-03-10 08:15 | NUR ---
TO SPLITTING MACHINE OPERATOR VIA BED IN STABLE CONDITION
--- NOTE | 2017-03-10 09:50 | NUR ---
RECEIVED PT BACK TO ROOM VIA BED VSS RT WRIST WITH TR BAND INTACT NO SIGNS OF BLEEDING PPP X4 NAD NOTED
[2017-03-10 12:00] VITALS: BP 136/50
[2017-03-10 16:00] VITALS: BP 144/59
[2017-03-10 19:00] VITALS: BP 178/73
[2017-03-11 00:46] VITALS: BP 153/66
[2017-03-11 05:12] VITALS: BP 141/59
[2017-03-11 05:54] LABS: BASOPHILS 0.2 % (0-2); EOSINOPHILS 2.5 % (0-7); HEMATOCRIT 32.3 % (42.0-54.0); HEMOGLOBIN 11.1 g/dL (13.5-17.5); IMMATURE GRANULOCYTES 0.3 % (0-5); LYMPHOCYTES 13.4 % (15-50); MCH 30.8 pg (26.0-34.0); MCHC 34.4 g/dL (31.0-37.0); MCV 89.7 fL (80.0-100.0); MEAN PLATELET VOLUME 9.8 fL (7.4-10.4); MONOCYTES 9.8 % (2-11); NEUTROPHILS 73.8 % (40-80); PLATELET COUNT 268 10x3/uL (130-400); RDW 12.5 % (11.5-14.5); WBC 9.5 10x3/uL (4.8-10.8)
[2017-03-11 06:33] LABS: ANION GAP 16.5 mmol/L (8-16); CALCIUM 8.1 mg/dL (8.5-10.1); CARBON DIOXIDE 20.9 mmol/L (21.0-32.0); CREATININE - SERUM 1.9 mg/dL (0.6-1.3); POTASSIUM - SERUM 4.4 mmol/L (3.5-5.1)
[2017-03-11 08:14] VITALS: BP 161/66
--- NOTE | 2017-03-11 09:15 | NUR ---
ALERT AND ORIENTED X4. RETURN TO ROOM VIA BED FROM WHEEL FILLER. T-97.6, BP-156/58, P-75, O2-100% 2L NC. FAMILY AT BEDSIDE. RT GROIN DRESSING CLEAN DRY INTACT. FREE FROM HEMATOMA. FREE FROM BLEEDING. PULSES PALPABLE. BED LOCKED AND LOW. CALL LIGHT IN REACH. TWO SIDERAILS UP. CONTINUE PLAN OF CARE AND SAFETY PRECAUTIONS.
[2017-03-11 12:05] VITALS: BP 129/53
[2017-03-11] MEDS ORDERED: PLAVIX75 MG PO (13:00)
--- NOTE | 2017-03-11 14:54 | NUR ---
ALERT AND ORIENTED X4. FAMILY AT BEDSIDE. RT GROIN DRESSING CLEAN DRY INTACT. NO HEMATOMA. NO BLEEDING. DC LT WRIST IV TIP INTACT. DISCHARGE INSTRUCTIONS. SIGNED ON CHART. ESCORT TO RIDE VIA WHEELCHAIR. REMAINS FREE FROM INJURY.
== END 2017-03-11 15:11 | disposition home or self-care (01) ==
LOC: D.ER 13:50 → D.M2 15:13 → OBSVTIME 15:13 → D.M2 03-11 15:11
PROVIDERS: Emergency Medicine; ADMIT Internal Medicine Interventional Cardiology
DX: I25.110 Atherosclerotic heart disease of native coronary artery with unstable angina pectoris (principal); I70.1 Atherosclerosis of renal artery; I10 Essential (primary) hypertension; E78.5 Hyperlipidemia, unspecified; T82.855A Stenosis of coronary artery stent, initial encounter; Y83.8 Other surgical procedures as the cause of abnormal reaction of the patient, or of later complication, without mention of misadventure at the time of the procedure
CPT/HCPCS: 93458; 36251; C9600 ×2

== ENCOUNTER 2018-02-17 16:46 | Inpatient (IN) | payer MEDICARE, BC ==
[~2018-02-17] VITALS: Ht 172.7 cm; Wt 57.6 kg
--- NOTE | ~2018-02-17 | EC ---
PATIENT:OPAL GR DATE OF SERVICE: 02/17/18 SEX: M MEDICAL RECORD: [id number] DATE OF : 31 LOCATION:D. D.211 AGE OF PATIENT: 82 ADMISSION DATE: 02/17/18 REFERRING PHYSICIAN: INTERPRETING PHYSICIAN: MARÍA CANTU MD ECHOCARDIOGRAM REPORT ECHO CHARGES 5 ECHO LIMITED Date: 02/18 CLINICAL DIAGNOSIS: SYNCOPE ECHOCARDIOGRAPHIC MEASUREMENTS (adult normal given) AC root (d.<3.7cm) cm LV Septum d (<1.2 cm> cm Valve Excursion cm LV Septum (systole) cm Left Atria (s.<4.0cm> 4.9 cm LVPW d(<1.2cm) cm RV (d.<2.3cm) 2.7 cm LVPW (sytole) cm LV diastole(<5.6CM) 5.2 cm MV E-F(>70mm/sec) cm LV systole 4.3 cm LVOT Diameter 2.0 cm MV exc.(>10mm) cm Est.ejection fraction (50-75%) % DOPPLER: LVIT cm/sec A 59.0 cm/sec E 49.0 cm/sec LA cm/sec RVSP 27 mmHg LVOT 107 cm/sec AOP1/2T m/s Asc. Ao 144 cm/sec RVOT cm/sec RA cm/sec PA cm/sec AV Gradient Peak 8.29 mmHg AV Mean 4.71 mmHg AV Area 2.7 cm MV Gradient Peak 2.16 mmHg MV Mean 0.60 mmHg MV Area cm COMMENTS: Assistant Hvac Mechanic: 2 JESSE LINCOLN Wood Preparation Supervisor: 4 Dr. Cantu TAPE# PACS Pericardial Effusion N DATE OF SERVICE: PROCEDURE: Transthoracic echocardiogram. FINDINGS: 1. The left ventricle has left ventricular hypertrophy. Ejection fraction is 55% to 60%. There is no obvious regional wall motion abnormality. The inflow characteristics are consistent with diastolic dysfunction. 2. The aortic valve is overall normal. 3. The mitral valve is normal. ECHOCARDIOGRAM REPORT [id number] OPAL GR 4. The left atrium is moderate to severely dilated. 5. Tricuspid valve has mild tricuspid regurgitation. 6. The right ventricle is normal size, shape, and function. 7. The right atrium is normal. 8. The pulmonic valve is not well visualized, but by Doppler measurements appears to have normal function. CONCLUSION: The patient has evidence of hypertensive heart disease with fptw-gd-gwowwrnd dilatation of the left atrium, otherwise normal echo. TRANSINT:[id number] Voice Confirmation ID: [id number] DOCUMENT ID: [id number] MARÍA CANTU MD at 1011 CC: [id number] DICTATION DATE: 02/19/18821 CIRCLE CUTTING SAW OPERATOR: 02/19/18 0909 ADM IN [place] [address] [place] [address]
[~2018-02-17 16:46] MED LIST changes: +CENTRUM SILVER1 TA1 PO; +LEVOTHYROXINE125 MCG PO; +MEGACE40 MG PO; +NIASPAN500 MG PO; +OMEPRAZOLE20 M1 PO
[2018-02-17] MEDS ORDERED: LIPITOR10 MG PO (16:55)
[2018-02-17 17:48] LABS: BASOPHILS 0.2 % (0-2); EOSINOPHILS 0 % (0-7); HEMOGLOBIN 12.8 g/dL (13.5-17.5); IMMATURE GRANULOCYTES 0.2 % (0-5); LYMPHOCYTES 19.8 % (15-50); MCH 30.8 pg (26.0-34.0); MCHC 33.7 g/dL (31.0-37.0); MCV 91.3 fL (80.0-100.0); MEAN PLATELET VOLUME 11.1 fL (7.4-10.4); NEUTROPHILS 63.8 % (40-80); RBC 4.16 10x6/uL (4.20-6.10); RDW 12.2 % (11.5-14.5); WBC 5.3 10x3/uL (4.8-10.8)
[2018-02-17 18:20] LABS: PLATELET COUNT 134 10x3/uL (130-400)
[2018-02-17 18:39] LABS: ALKALINE PHOSPHATASE 100 U/L (46-116); ALT (SGPT) 64 U/L (10-68); BILIRUBIN - TOTAL 0.29 mg/dL (0.2-1.3); CALC OSMOLALITY 290 mosm/kg (275-300); CARBON DIOXIDE 21.9 mmol/L (21.0-32.0); CHLORIDE - SERUM 104 mmol/L (98-107); CREATININE - SERUM 2.3 mg/dL (0.6-1.3); GLUCOSE 93 mg/dL (74-106); POTASSIUM - SERUM 4.8 mmol/L (3.5-5.1); PROTEIN - SERUM 7.1 g/dL (6.4-8.2); SODIUM 137 mmol/L (136-145); UREA NITROGEN 59 mg/dL (7-18); eGFR NON AFRICAN AMERICAN 29 mL/min (90-120)
[2018-02-17 18:48] LABS: CKMB 0.8 U/L (0.0-3.6); CREATINE KINASE 43 UL (21-232); MAGNESIUM - SERUM 1.9 mg/dL (1.8-2.4); PRO BNP 3197 pg/mL (0-450)
[2018-02-17 18:56] LABS: TROPONIN-I 0.236 ng/mL (0.000-0.060)
[2018-02-17 21:20] LABS: CKMB 1.5 U/L (0.0-3.6); CREATINE KINASE 84 UL (21-232)
[2018-02-17 21:21] LABS: TROPONIN-I 0.247 ng/mL (0.000-0.060)
[2018-02-17] MEDS ORDERED: POLYTRIM EYE DR10 ML EACH EYE (22:00)
[2018-02-17 23:29] LABS: APPEARANCE CLOUDY (CLEAR); BILIRUBIN NEGATIVE (NEGATIVE); COLOR YELLOW (YELLOW); GLUCOSE NEGATIVE (NEGATIVE); KETONE NEGATIVE (NEGATIVE); NITRITE NEGATIVE (NEGATIVE); PROTEIN 3+ mg/dL (NEGATIVE); UROBILINOGEN NORMAL (NORMAL)
[2018-02-17 23:31] LABS: BACTERIA MODERATE /hpf (NONE SEEN); EPITHELIAL CELLS 0-5 /hpf (0-5); RED CELLS - URINE 0-5 /hpf (0-5); WHITE CELLS - URINE 0-5 /hpf (0-5)
[2018-02-18] VITALS (7 sets, daily range): BP systolic 148–193; BP diastolic 62–85; Ht 172.7 cm; Wt 57.6 kg
[2018-02-18 04:40] LABS: HEMOGLOBIN 12.4 g/dL (13.5-17.5); MCH 30.2 pg (26.0-34.0); MCHC 33.5 g/dL (31.0-37.0); MEAN PLATELET VOLUME 11.6 fL (7.4-10.4); PLATELET COUNT 146 10x3/uL (130-400); RBC 4.11 10x6/uL (4.20-6.10); RDW 12.2 % (11.5-14.5)
[2018-02-18 04:43] LABS: WBC 2.7 10x3/uL (4.8-10.8)
[2018-02-18 05:01] LABS: ALBUMIN 2.6 g/dL (3.4-5.0); ALKALINE PHOSPHATASE 89 U/L (46-116); ALT (SGPT) 55 U/L (10-68); BILIRUBIN - TOTAL 0.32 mg/dL (0.2-1.3); CALC OSMOLALITY 288 mosm/kg (275-300); CALCIUM 7.9 mg/dL (8.5-10.1); CARBON DIOXIDE 23.1 mmol/L (21.0-32.0); CHLORIDE - SERUM 103 mmol/L (98-107); CKMB 2.3 U/L (0.0-3.6); CREATINE KINASE 125 UL (21-232); CREATININE - SERUM 2.2 mg/dL (0.6-1.3); GLUCOSE 106 mg/dL (74-106); POTASSIUM - SERUM 5.6 mmol/L (3.5-5.1); PROTEIN - SERUM 6.7 g/dL (6.4-8.2); SODIUM 136 mmol/L (136-145); TROPONIN-I 0.232 ng/mL (0.000-0.060); UREA NITROGEN 60 mg/dL (7-18); eGFR NON AFRICAN AMERICAN 30 mL/min (90-120)
[2018-02-18 05:08] LABS: LYMPHOCYTES 16 % (15-50); MONOCYTES 4 % (2-11); NEUTROPHILS 70 % (40-80); PLATELET ESTIMATE DECREASED
[2018-02-18 09:18] LABS: CKMB 2.1 U/L (0.0-3.6); CREATINE KINASE 88 UL (21-232)
[2018-02-18 09:28] LABS: TROPONIN-I 0.189 ng/mL (0.000-0.060)
[2018-02-18 15:41] LABS: % SATURATION 32 % (15-55); IRON 48 ug/dl (35-150); TOTAL IRON BIND CAPACITY 148 ug/dl (260-445); UNSAT IRON BIND CAPACITY 100 ug/dl (150-375)
[2018-02-18 16:22] LABS: MAGNESIUM - SERUM 2.1 mg/dL (1.8-2.4); THYROID STIMULATING HORMONE 0.03 uIU/mL (0.36-3.74)
[2018-02-19 05:50] VITALS: BP 151/64
[2018-02-19 05:51] LABS: INR 1.04 (0.85-1.17); PROTIME 13.2 SECONDS (11.6-15.0)
[2018-02-19 05:57] LABS: BASOPHILS 0.1 % (0-2); EOSINOPHILS 0 % (0-7); HEMATOCRIT 34.1 % (42.0-54.0); HEMOGLOBIN 11.5 g/dL (13.5-17.5); IMMATURE GRANULOCYTES 0.6 % (0-5); LYMPHOCYTES 10.3 % (15-50); MCH 30.3 pg (26.0-34.0); MCHC 33.7 g/dL (31.0-37.0); MEAN PLATELET VOLUME 11.6 fL (7.4-10.4); MONOCYTES 5.8 % (2-11); NEUTROPHILS 83.2 % (40-80); PLATELET COUNT 144 10x3/uL (130-400); RBC 3.79 10x6/uL (4.20-6.10); RDW 12.1 % (11.5-14.5)
[2018-02-19 06:01] LABS: WBC 6.8 10x3/uL (4.8-10.8)
[2018-02-19 06:08] LABS: ALBUMIN 2.5 g/dL (3.4-5.0); ANION GAP 15.2 mmol/L (8-16); BILIRUBIN - TOTAL 0.21 mg/dL (0.2-1.3); CALCIUM 7.9 mg/dL (8.5-10.1); CARBON DIOXIDE 18.4 mmol/L (21.0-32.0); CREATININE - SERUM 1.9 mg/dL (0.6-1.3); PRE-ALBUMIN 14.7 mg/dL (18.0-35.7); PROTEIN - SERUM 6.1 g/dL (6.4-8.2)
[2018-02-19 06:11] LABS: POTASSIUM - SERUM 4.6 mmol/L (3.5-5.1)
[2018-02-19 08:21] LABS: FOLATE (FOLIC ACID) - SERUM 19.9 ng/mL (>3.0)
[2018-02-19 08:25] VITALS: BP 152/69
[2018-02-19 11:43] VITALS: BP 141/66
[2018-02-19 15:10] VITALS: BP 132/63
[2018-02-19 20:00] VITALS: BP 163/80
[2018-02-20] VITALS: BP 157/56
[2018-02-20 04:00] VITALS: BP 185/68
[2018-02-20 05:46] LABS: BASOPHILS 0.1 % (0-2); EOSINOPHILS 0 % (0-7); HEMATOCRIT 37.1 % (42.0-54.0); HEMOGLOBIN 12.3 g/dL (13.5-17.5); IMMATURE GRANULOCYTES 0.3 % (0-5); LYMPHOCYTES 4.9 % (15-50); MCH 30.2 pg (26.0-34.0); MCHC 33.2 g/dL (31.0-37.0); MCV 91.2 fL (80.0-100.0); MEAN PLATELET VOLUME 11.8 fL (7.4-10.4); MONOCYTES 3.4 % (2-11); NEUTROPHILS 91.3 % (40-80); RBC 4.07 10x6/uL (4.20-6.10); RDW 12.2 % (11.5-14.5)
[2018-02-20 05:49] LABS: PLATELET COUNT 203 10x3/uL (130-400)
[2018-02-20 06:00] LABS: ANION GAP 18.6 mmol/L (8-16); CALCIUM 7.9 mg/dL (8.5-10.1); CARBON DIOXIDE 18.8 mmol/L (21.0-32.0); CREATININE - SERUM 1.9 mg/dL (0.6-1.3); POTASSIUM - SERUM 4.4 mmol/L (3.5-5.1)
[2018-02-20 08:09] VITALS: BP 186/83
[2018-02-20 11:46] VITALS: BP 197/88
[2018-02-20 15:14] VITALS: BP 209/87
[2018-02-20 20:01] VITALS: BP 176/79
[2018-02-21] VITALS (7 sets, daily range): BP systolic 130–187; BP diastolic 69–83
[2018-02-21 05:14] LABS: BASOPHILS 0.1 % (0-2); EOSINOPHILS 0 % (0-7); HEMATOCRIT 32.3 % (42.0-54.0); HEMOGLOBIN 10.8 g/dL (13.5-17.5); IMMATURE GRANULOCYTES 0.3 % (0-5); LYMPHOCYTES 4.4 % (15-50); MCH 29.9 pg (26.0-34.0); MCHC 33.4 g/dL (31.0-37.0); MCV 89.5 fL (80.0-100.0); MEAN PLATELET VOLUME 11.2 fL (7.4-10.4); MONOCYTES 4.4 % (2-11); NEUTROPHILS 90.8 % (40-80); PLATELET COUNT 189 10x3/uL (130-400); RBC 3.61 10x6/uL (4.20-6.10); RDW 12.2 % (11.5-14.5); WBC 10.3 10x3/uL (4.8-10.8)
[2018-02-21 05:29] LABS: ANION GAP 13.5 mmol/L (8-16); CALCIUM 7.2 mg/dL (8.5-10.1); CARBON DIOXIDE 22.1 mmol/L (21.0-32.0); CREATININE - SERUM 1.5 mg/dL (0.6-1.3)
[2018-02-21 05:37] LABS: POTASSIUM - SERUM 3.6 mmol/L (3.5-5.1)
[2018-02-22 04:16] VITALS: BP 183/78
[2018-02-22 05:35] LABS: BASOPHILS 0 % (0-2); EOSINOPHILS 0 % (0-7); HEMATOCRIT 35.1 % (42.0-54.0); HEMOGLOBIN 11.7 g/dL (13.5-17.5); IMMATURE GRANULOCYTES 0.3 % (0-5); LYMPHOCYTES 4.2 % (15-50); MCH 30.1 pg (26.0-34.0); MCHC 33.3 g/dL (31.0-37.0); MCV 90.2 fL (80.0-100.0); MEAN PLATELET VOLUME 11.2 fL (7.4-10.4); MONOCYTES 2.9 % (2-11); NEUTROPHILS 92.6 % (40-80); PLATELET COUNT 198 10x3/uL (130-400); RBC 3.89 10x6/uL (4.20-6.10); RDW 12.2 % (11.5-14.5); WBC 9.9 10x3/uL (4.8-10.8)
[2018-02-22 06:00] LABS: ANION GAP 13.9 mmol/L (8-16); CALCIUM 7.2 mg/dL (8.5-10.1); CARBON DIOXIDE 23.3 mmol/L (21.0-32.0); CREATININE - SERUM 1.5 mg/dL (0.6-1.3); POTASSIUM - SERUM 3.2 mmol/L (3.5-5.1)
[2018-02-22 07:49] VITALS: BP 130/72
[2018-02-22 11:03] VITALS: BP 124/69
[2018-02-22 20:00] VITALS: BP 189/89
[2018-02-23 04:17] VITALS: BP 197/92
[2018-02-23 06:42] LABS: BASOPHILS 0 % (0-2); EOSINOPHILS 0 % (0-7); HEMATOCRIT 34.7 % (42.0-54.0); HEMOGLOBIN 11.5 g/dL (13.5-17.5); IMMATURE GRANULOCYTES 0.4 % (0-5); LYMPHOCYTES 2.7 % (15-50); MCH 29.6 pg (26.0-34.0); MCHC 33.1 g/dL (31.0-37.0); MCV 89.2 fL (80.0-100.0); MEAN PLATELET VOLUME 10.9 fL (7.4-10.4); MONOCYTES 2.4 % (2-11); NEUTROPHILS 94.5 % (40-80); PLATELET COUNT 207 10x3/uL (130-400); RBC 3.89 10x6/uL (4.20-6.10); RDW 12.2 % (11.5-14.5)
[2018-02-23 06:44] LABS: WBC 12.8 10x3/uL (4.8-10.8)
[2018-02-23 07:07] LABS: ANION GAP 10.4 mmol/L (8-16); CALCIUM 7.1 mg/dL (8.5-10.1); CARBON DIOXIDE 24.4 mmol/L (21.0-32.0); CREATININE - SERUM 1.4 mg/dL (0.6-1.3)
[2018-02-23 07:09] LABS: POTASSIUM - SERUM 3.8 mmol/L (3.5-5.1)
[2018-02-23 07:47] VITALS: BP 171/79
[2018-02-23 11:00] VITALS: BP 166/82
[2018-02-23] MEDS ORDERED: TENORMIN50 MG PO (13:32)
[2018-02-23] MEDS ORDERED: PEPCID20 MG PO (13:33)
[2018-02-23] MEDS ORDERED: TRAZODONE HCL50 MG PO (13:33)
[2018-02-23] MEDS ORDERED: CARAFATE1 G/10 ML PO (13:34)
[2018-02-23] MEDS ORDERED: FLORAJEN3 CAPS460 MG PO (13:35)
[2018-02-23] MEDS ORDERED: PREDNISONE10 MG PO (13:36)
[2018-02-23] MEDS ORDERED: HYDRALAZINE HCL10 MG PO (13:37)
[2018-02-23] MEDS ORDERED: ROCEPHIN 1 GM/D51 G1 IV (13:39)
== END 2018-02-23 18:30 | DRG 391 ==
LOC: D.ER 16:46 → D.M2 20:47
PROVIDERS: Family Medicine; Internal Medicine Gastroenterology; Internal Medicine Nephrology
PROC: 0DB68ZX Excision of Stomach, Via Natural or Artificial Opening Endoscopic, Diagnostic (ICD-10-PCS; 2018-02-19)
PROC: 0D758ZZ Dilation of Esophagus, Via Natural or Artificial Opening Endoscopic (ICD-10-PCS; principal; 2018-02-19 09:22)
DX: K22.4 Dyskinesia of esophagus (principal); K25.4 Chronic or unspecified gastric ulcer with hemorrhage; N17.9 Acute kidney failure, unspecified; N18.9 Chronic kidney disease, unspecified; E87.5 Hyperkalemia; Z68.21 Body mass index [BMI] 21.0-21.9, adult

== ENCOUNTER 2018-02-23 16:13 | Inpatient (IN) | payer MEDICARE, BC ==
[~2018-02-23] VITALS: Ht 172.7 cm; Wt 57.2 kg
--- NOTE | ~2018-02-23 | RHP ---
PATIENT: OPAL GR MEDICAL RECORD: [id number] ACCOUNT: [id number] LOCATION:[facility]1119 : 33 ADMISSION DATE: 02/23/18 REHABILITATION HISTORY AND PHYSICAL EXAMINATION POST ADMISSION PHYSICIAN EXAMINATION POST-ADMISSION PHYSICAL EXAMINATION AND HISTORY AND PHYSICAL DATE OF ADMISSION: 02/23/2018 ADMITTING DIAGNOSIS: Chronic obstructive pulmonary disease. HISTORY OF PRESENT ILLNESS: The patient admitted to inpatient rehab with a working diagnosis of COPD. He is an 82-year-old gentleman. History of hypertension, hyperlipidemia, coronary artery disease, status post stent placement, pacemaker placement, gastroesophageal reflux disease, and hypothyroidism. He presented to the ER with complaints of trouble swallowing and right-sided chest discomfort, in which symptoms had been present 2 weeks prior to his acute hospitalization on 02/17. His daughter was concerned that the patient has been unable to eat and has had 2 syncopal episodes in the past 2 weeks prior to hospitalization. The patient also has been having a cough for the past years, worsing over the past month. He has been evaluated by cardiology and gastroenterology. He has had an EGD. He has also been seen by cardiology. He lives at home alone. He was independent with ADLs and mobility, but he has 2 different types of rolling walker and wheelchair at home per his daughter. He is hard of hearing and has hearing aids. He has been a for nearly a year and his daughter feels that he has got some depression caused from recent anniversary of her . He is slowly progressing with p.o. intake and encouragement. He refuses a PEG at this time. He is on O2 at 2 liters via nasal cannula, receiving IV antibiotics and IV steroids for COPD. He is min-to-mod assist for ADLs, mod assist to max assist with his mobility. He and his daughter plan for him to return home with his prior level of functioning or even better with acute inpatient rehab stay. His daughter still lives close, but does check on her father on a regular basis. Comorbidities in this patient include COPD, syncope, dysphagia, hypokalemia, normocytic anemia, history of BPH, coronary artery disease. He has got a history of noted retention of food in his stomach and gastroparesis. PAST MEDICAL HISTORY: Significant for cataracts, hearing aids, trouble swallowing, thyroid problems, pacemaker, stents, angioplasty, chronic cough, acid reflux, prostate problems, BPH, and urinary retention. PAST SURGICAL HISTORY: Includes gallbladder surgery, right knee surgery, angioplasty with stents and pacemaker. ALLERGIES: No known drug allergies. CURRENT MEDICATIONS: He is on a tapering dose of prednisone. He is on a multivitamin daily. Protonix 40 mg daily. He is on Rocephin a gram every 24 hours. Megace 40 mg daily. Levothyroxine 75 mcg daily. Floranex 460 mg daily. Atorvastatin 10 mg daily. Aspirin chewable 81 mg daily. Gaviscon as needed for heartburn. He is on trazodone 100 mg at bedtime. Flomax 0.4 mg at bedtime. Carafate a gram t.i.d. Polymyxin eyedrops as needed. Grove 5/325 as needed for pain. Hydralazine 10 mg every 6 hours as needed for elevation in blood pressure. Pepcid 20 mg at bedtime. Atenolol 50 mg b.i.d. HISTORY AND PHYSICAL [id number] OPAL GR HABITS: He has a history of tobacco use. FAMILY HISTORY: Noncontributory. SOCIAL HISTORY: The patient hopes to return back to home and get back to his prior level of functioning. REVIEW OF SYSTEMS: GENERAL: Does complain of weakness and fatigue. HEENT: Does complain of cold, cough, and congestion. CARDIOVASCULAR: Denies any chest pain on the left side. Does have occasional pain on the right. LUNGS: Does complain of shortness of breath, especially with activity. PHYSICAL EXAMINATION: VITAL SIGNS: Stable. He is afebrile. GENERAL: An elderly gentleman, who is in no acute distress, alert upon exam. HEENT: Normocephalic and atraumatic. Mucosa moist. NECK: Supple. No lymphadenopathy. LUNGS: Clear in upper dietrich, but decreased breath sounds in both bases. CARDIOVASCULAR: Regular rate and rhythm. ABDOMEN: Benign. EXTREMITIES: No clubbing, cyanosis, or edema. NEUROLOGIC: Does have noted weakness. LABORATORY DATA: White count is 15.1 from his steroids. His H&H are 11.6 and 34.9. Platelet count is 237. His sodium is 143, potassium 3.2, BUN and creatinine of 21 and 1.6, and blood sugar was noted to be 108. He does have a critically low calcium of 6.5. ASSESSMENT: This is an 82-year-old gentleman admitted to the rehab with a working diagnosis of COPD and noted debility. The patient has potential to make improvement. We will institute the following multidisciplinary therapies including, not limited to, physical, occupational, respiratory, speech, nutritional services, prosthetics and orthotics. Given his complex medical condition and risks for more complications, rehabilitation services cannot be provided at a low level of care such as a [facility]p facility. PLAN: 1. Admit to [facility] for intensive inpatient therapy to include the following disciplines: A. Physical therapy to improve gait, all transfer skills and bed mobility to a modified independent level. B. Occupational therapy to improve activities of daily living to a modified independent level. C. Case management to assist with discharge planning and placement options. D. Nutrition to assist with nutritional needs. E. Rehabilitation nursing to assist in monitoring the patient's underlying medical conditions and to assist with any type of bowel or bladder management. 2. The patient's current medications and medical care will be continued. 3. The patient will be placed on standard fall precautions. 4. The patient's estimated length of stay is approximately 7-10 days. 5. We will discuss this patient during care team staff meeting this week. We will get with speech therapy and dietary and work on getting some weight back on HISTORY AND PHYSICAL [id number] OPAL GR, and I am going to follow him up at lunch today. TRANSINT:[id number] Voice Confirmation ID: [id number] DOCUMENT ID: [id number] SLAVA notes whether there has been none or any medical/functional change since admission: - No change since preadmission screen. SLAVA attests patient continues to be appropriate for IRF: - Congtinues to be appropriate. JIGNESH GRECO MD at 1809 CC: [id number] DICTATION DATE: 02/24/18 0855 ROLL RECLAIMER: 02/24/18 0928 DIS IN 02/26/18 [address] [place] [address]
[~2018-02-23 16:13] MED LIST changes: +CARAFATE1 G/10 ML PO; +FLORAJEN3 CAPS460 MG PO; +HYDRALAZINE HCL10 MG PO; +LIPITOR10 MG PO; +PEPCID20 MG PO; +POLYTRIM EYE DR10 ML EACH EYE; +PREDNISONE10 MG PO; +ROCEPHIN 1 GM/D51 G1 IV; +TRAZODONE HCL50 MG PO
[2018-02-23 19:00] VITALS: BP 171/86
[2018-02-23 21:37] VITALS: BP 171/86; BMI 19.2
[2018-02-24 06:31] LABS: BASOPHILS 0.1 % (0-2); EOSINOPHILS 0 % (0-7); HEMATOCRIT 34.9 % (42.0-54.0); HEMOGLOBIN 11.6 g/dL (13.5-17.5); IMMATURE GRANULOCYTES 0.5 % (0-5); LYMPHOCYTES 5.5 % (15-50); MCH 30.1 pg (26.0-34.0); MCHC 33.2 g/dL (31.0-37.0); MCV 90.4 fL (80.0-100.0); MEAN PLATELET VOLUME 10.9 fL (7.4-10.4); MONOCYTES 2.2 % (2-11); NEUTROPHILS 91.7 % (40-80); PLATELET COUNT 237 10x3/uL (130-400); RBC 3.86 10x6/uL (4.20-6.10); RDW 12.2 % (11.5-14.5); WBC 15.1 10x3/uL (4.8-10.8)
[2018-02-24 06:51] LABS: CARBON DIOXIDE 27.6 mmol/L (21.0-32.0); CREATININE - SERUM 1.6 mg/dL (0.6-1.3)
[2018-02-24 06:53] LABS: ANION GAP 11.6 mmol/L (8-16); POTASSIUM - SERUM 3.2 mmol/L (3.5-5.1)
[2018-02-24 06:56] LABS: CALCIUM 6.5 mg/dL (8.5-10.1)
[2018-02-24 08:00] VITALS: BP 121/78
[2018-02-24 13:50] VITALS: Ht 172.7 cm; Wt 57.2 kg
[2018-02-24 19:00] VITALS: BP 167/71
[2018-02-25 07:53] VITALS: BP 173/76
[2018-02-25 19:00] VITALS: BP 139/67
[2018-02-26 06:45] LABS: BASOPHILS 0 % (0-2); EOSINOPHILS 0 % (0-7); HEMATOCRIT 33.8 % (42.0-54.0); HEMOGLOBIN 11.3 g/dL (13.5-17.5); IMMATURE GRANULOCYTES 0.5 % (0-5); LYMPHOCYTES 7.3 % (15-50); MCH 30.1 pg (26.0-34.0); MCHC 33.4 g/dL (31.0-37.0); MCV 90.1 fL (80.0-100.0); NEUTROPHILS 89.2 % (40-80); PLATELET COUNT 222 10x3/uL (130-400); RBC 3.75 10x6/uL (4.20-6.10); RDW 12.3 % (11.5-14.5); WBC 16.2 10x3/uL (4.8-10.8)
[2018-02-26 06:57] LABS: ANION GAP 8.2 mmol/L (8-16); CARBON DIOXIDE 28.5 mmol/L (21.0-32.0); CREATININE - SERUM 1.7 mg/dL (0.6-1.3); POTASSIUM - SERUM 3.7 mmol/L (3.5-5.1)
[2018-02-26 07:08] LABS: CALCIUM 6.6 mg/dL (8.5-10.1)
[2018-02-26 07:58] VITALS: BP 113/65
[2018-02-26] MEDS ORDERED: CELEXA20 MG PO (08:48)
== END 2018-02-26 14:30 | disposition home health service (06) | DRG 948 ==
LOC: D.REHAB 16:13
PROVIDERS: Emergency Medicine
DX: R53.81 Other malaise (principal); R55 Syncope and collapse; R13.10 Dysphagia, unspecified; E87.6 Hypokalemia; D64.9 Anemia, unspecified; I25.10 Atherosclerotic heart disease of native coronary artery without angina pectoris; K31.84 Gastroparesis; K21.9 Gastro-esophageal reflux disease without esophagitis; Z95.0 Presence of cardiac pacemaker

== ENCOUNTER 2018-07-17 17:10 | Inpatient (IN) | payer MEDICARE, BC ==
[~2018-07-17] VITALS: Ht 172.7 cm; Wt 60.5 kg
[~2018-07-17 17:10] MED LIST changes: +CELEXA20 MG PO
[2018-07-17 18:29] LABS: BASOPHILS 0.1 % (0-2); EOSINOPHILS 0.1 % (0-7); HEMATOCRIT 33.9 % (42.0-54.0); HEMOGLOBIN 11.1 g/dL (13.5-17.5); IMMATURE GRANULOCYTES 0.2 % (0-5); LYMPHOCYTES 7.8 % (15-50); MCH 29.7 pg (26.0-34.0); MCHC 32.7 g/dL (31.0-37.0); MCV 90.6 fL (80.0-100.0); MEAN PLATELET VOLUME 9.1 fL (7.4-10.4); MONOCYTES 6.2 % (2-11); NEUTROPHILS 85.6 % (40-80); PLATELET COUNT 233 10x3/uL (130-400); RBC 3.74 10x6/uL (4.20-6.10); RDW 13.8 % (11.5-14.5); WBC 16.7 10x3/uL (4.8-10.8)
[2018-07-17] MEDS ORDERED: TESSALON PERLE100 MG PO (18:34)
[2018-07-17] MEDS ORDERED: ATIVAN0.5 MG PO (18:34)
[2018-07-17] MEDS ORDERED: LOPRESSOR25 MG PO (18:35)
[2018-07-17] MEDS ORDERED: NORCO 10-325 TA1 TAB PO (18:35)
[2018-07-17] MEDS ORDERED: CELEXA10 MG PO (18:36)
[2018-07-17] MEDS ORDERED: TRAZODONE HCL100 MG PO (18:36)
[2018-07-17] MEDS ORDERED: LEVOXYL75 MCG PO (18:37)
[2018-07-17 18:50] LABS: ALBUMIN 3.1 g/dL (3.4-5.0); ANION GAP 14.7 mmol/L (8-16); BILIRUBIN - TOTAL 0.27 mg/dL (0.2-1.3); CARBON DIOXIDE 25.5 mmol/L (21.0-32.0); POTASSIUM - SERUM 4.2 mmol/L (3.5-5.1); PROTEIN - SERUM 7.1 g/dL (6.4-8.2)
[2018-07-17 19:20] LABS: APTT 29.2 SECONDS (22.8-39.4); INR 1.05 (0.85-1.17); PROTIME 13.6 SECONDS (11.6-15.0)
--- NOTE | 2018-07-17 19:32 | NUR ---
PROVIDED PT WITH WATER. FAMILY AT BEDSIDE. NO DISTRESS NOTED AT THIS TIME. WILL CONTINUE TO MONITOR PATIENT.
[2018-07-17 19:59] VITALS: BP 211/97
[2018-07-17 20:39] VITALS: BP 169/85
--- NOTE | 2018-07-17 20:41 | NUR ---
APRESOLINE NOT GIVEN BP IS 169/85
--- NOTE | 2018-07-17 22:25 | NUR ---
PT C/O OF HORRIBLE PAIN. MORPHINE NOT DUE AT THIS TIME. NEW ORDER RECEIVED FOR DILAUDID 0.5MG IV Q3H AND PERCOCET 10 Q4 IF NOT RELIEVED BY DILAUDID.
[2018-07-17 23:48] VITALS: BP 192/70
--- NOTE | 2018-07-18 | NUR ---
YELLING IN PAIN AND REPORTS HE HAS TO HAVE SOMETHING. PERCOCET TO BE GIVEN PER ORDER.
[2018-07-18 00:50] VITALS: BP 169/71
[2018-07-18 01:30] VITALS: BP 192/70; Ht 172.7 cm; Wt 60.5 kg
--- NOTE | 2018-07-18 04:55 | NUR ---
BLADDER SCAN OF 641ML AND PT UNABLE TO VOID. REPORTS NO URGE. 16 NEW ZEALANDER ROSA INSERTED USING HEATING MECHANIC.
[2018-07-18 05:02] VITALS: BP 187/96
--- NOTE | 2018-07-18 06:55 | NUR ---
VERBAL CONSENT OBTAINED BY ABEL BULLOCK BY ANIKET SHERMAN AND CHEL ZIEGLER.
[2018-07-18 08:00] VITALS: BP 160/671
--- NOTE | 2018-07-18 08:00 | NUR ---
PT ALERT TO SELF AND PLACE. [place]. BREATH SOUNDS WET WITH CRACKLES TO ALL LANDRUM. IV TO LEFT FOREARM, PATENT, DRESSING CLEAN DRY AND INTACT. ROSA IN PLACE, URINE YELLOW AND CLEAR. 2L O2 PER NC. IMPAIRED ROM TO LEFT LEG DUE TO FX. FAMILY AT BEDSIDE. PAIN OF RATED AT AN 8 BASED ON BLACKBURN TATE SCALE, WILL MONITOR. BED LOW, CALL LIGHT IN REACH, NO OTHER NEEDS AT THIS TIME.
[2018-07-18 12:00] VITALS: BP 140/69
--- NOTE | 2018-07-18 16:11 | NUR ---
CONSULT ANESTHESIA REGARDING DECREASED O2 SAT. VERBAL ORDERS RECEIVED FROM JESUS CLARKE CRNA / DR SAGASTUME TO ADMINISTER LEVALBUTEROL UPDRAFT X1 IN PACU. WILL CONTINUE TO MONITOR.
[2018-07-18 16:51] VITALS: BP 116/49
--- NOTE | 2018-07-18 17:06 | NUR ---
1610 VERBAL ORDERS RECEIVED FROM ANESTHESIA TO ORDER ABG'S AND PCXR STAT IN PACU. ORDERS RECEIVED AND IMPLEMENTED. WILL CONTINUE TO MONITOR.
--- NOTE | 2018-07-18 17:08 | NUR ---
AT 1615 RT AT BEDSIDE. ABG'S REVIEWED BY ANESTHESIA. THE DECISION TO PLACE THIS PATIENT ON BIPAP WAS MADE BY ANESTHESIA. PATIENT'S FAMILY WAS INFORMED OF THIS DECISION AND DAUGHTER VERBALIZED UNDERSTANDING AND WAS IN AGREEMENT WITH TREATMENT. RT WAS AGAIN NOTIFIED AND SET UP BIPAP MACHINE IN ROOM 2206 UPON TRANSFER TO FLOOR.
--- NOTE | 2018-07-18 17:12 | NUR ---
AT 1545 RECEIVED VERBAL ORDERS FROM JESUS CLARKE CRNA/ DR SAGASTUME TO ADMINISTER LASIX 20MG IV X1 IN PACU NOW. ORDERS RECEIVED AND IMPLEMENTED. WILL CONTINUE TO MONITOR.
--- NOTE | 2018-07-18 22:00 | NUR ---
1954 CALLED TO ROOM BY FAMILY. PT HAS NO RESP AND NO PULSE. [address] MUELLER. TRANFERRED DR MUELLER TO ER. [address] BROOKS. 2049 REPORTED TO PROPERTY AND CASUALTY INSURANCE AGENT. RECEIVED OK TO RELEASE TO HOME. 2119 REPORTED TO CARIAS. DOES NOT MEET CRITERIA FOR DONATION. 2129 CALLED HOME. 2199 HOME PICKED UP .
--- NOTE | 2018-07-19 07:40 | OP ---
PATIENT NAME: OPAL GR MEDICAL RECORD: [id number] :33 LOCATION:[facility] ADMISSION DATE:07/17/18 SURGEON: FABIO LUNSFORD DO DATE OF OPERATION: 07/18/2018 PROCEDURE PERFORMED: Left madison hip arthroplasty, cemented. PREOPERATIVE DIAGNOSIS: Left displaced femoral neck fracture. POSTOPERATIVE DIAGNOSIS: Left displaced femoral neck fracture. INDICATIONS: Mr. Opal Gr is an 82-year-old male who was on hospice for failure to thrive. He was up with his walker yesterday and fell backwards onto his left hip. He could not put weight on it and was in extreme amount of pain. He was taken to the ER, seen to have a hip fracture and discussed with his daughter about what to do due to the fact he is on hospice. I informed her that the risk could be very high with surgery and that most people in his situation do not do well after surgery, but in order to help with the pain and be able to get up and ambulate even though ambulating with a walker prior to this, a madison hip arthroplasty probably the best option. After weighing the risks and benefits of everything her, he agreed to and knowing the risk going into it, so did his daughter and he was consented for left hip arthroplasty knowing the risks of infection, bleeding, damage to nerve or vessels even and blood clots. SURGEON: Fabio Lunsford DO DESCRIPTION OF PROCEDURE: The patient was taken to the operative suite, laid in the supine position, given general anesthetic and intubated. He was given 1 gram of vancomycin preoperatively for preoperative antibiotics due to his CEPHALOSPORIN ALLERGY. The patient was then moved over to the [place] table and positioned. The left hip was prepped and draped in sterile fashion. A timeout was performed, everyone was in agreement with the correct side, site, patient, and procedure. The procedure then began with the incision over the tensor fasciae latae muscle. Careful dissection was made down to the fascia itself and the fascia was incised. The fascia was taken anterior to the muscle belly posteriorly and then the interval between the rectus was encountered and the fascia was opened. The ascending branch of the lateral femoral circumflex was tied off and coagulated with an Aquamantys at that time. The capsule was then cleaned off with a Smith and the capsule was opened with a Bovie and tagged. The femoral neck was then exposed. Hohmanns were put around it and cut. The femoral neck fracture was higher than the cut for the madison. The head was then removed. Acetabulum was irrigated and then the femur was exposed and a release of the ischiofemoral ligament was done in order to gain better access to the femur. The canal finder and [employer]ie cutter were then used and broaching began starting with a #4 and broached up to an #18, #18 was a little wobbly, but a #20 would not fit. A decision was made to cement at that time. An #18 was put in and then trialed with a -6 neck and this had good length. The cement was then mixed. Cement restrictor was placed down the femur. Cement was put into the femur and the stem was placed in and held into place while the cement hardened. The excess cement was removed from around the implant and all the soft tissue. Once the cement hardened, the head was put on and the hip was reduced and x-rays were taken. No fractures were seen in the femur and there were good leg lengths compared to the other side on AP pelvis in the OR, the site was then thoroughly OPERATIVE REPORT [id number] OPAL GR irrigated. The capsule was then closed with #2 Ethibond and then tied the capsule prior to this and Surgicel. These were placed into the wound as well as vancomycin, tobramycin. The fascia of the tensor fascia nathalie was closed with #1 Vicryl, first a [id number] and then a running locking stitch. The skin was then closed with 2-0 Vicryl in an inverted interrupted fashion, 4-0 Monocryl in the skin and a Prineo. Dermabond glue was placed on the incision. Adaptic, 4 x 4, ABD, and Medipore tape were then placed on the wound. The patient was awakened and taken to the recovery in stable condition. Blood loss was approximately 200 mL. COMPLICATIONS: None. TRANSINT:[id number] Voice Confirmation ID: [id number] DOCUMENT ID: [id number] FABIO LUNSFORD DO at 0740 CC: [id number] DICTATION DATE: 07/18/18 0297 PORT SURVEYOR: 07/18/18 2128 DIS IN 07/18/18 [facility] [address] [place] [address]
== END 2018-07-18 22:00 | DRG 469 ==
LOC: D.ER 17:10 → D.EDHOLD 19:29 → D.MS 20:24
PROVIDERS: Emergency Medicine; Orthopaedic Surgery; ADMIT Emergency Medicine
PROC: 0SRS0JZ Replacement of Left Hip Joint, Femoral Surface with Synthetic Substitute, Open Approach (ICD-10-PCS; principal; 2018-07-18 07:25)
DX: S72.002A Fracture of unspecified part of neck of left femur, initial encounter for closed fracture (principal); J96.01 Acute respiratory failure with hypoxia; I50.21 Acute systolic (congestive) heart failure; I13.0 Hypertensive heart and chronic kidney disease with heart failure and stage 1 through stage 4 chronic kidney disease, or unspecified chronic kidney disease; E44.0 Moderate protein-calorie malnutrition; W01.0XXA Fall on same level from slipping, tripping and stumbling without subsequent striking against object, initial encounter; Z66 Do not resuscitate; J44.9 Chronic obstructive pulmonary disease, unspecified; K21.9 Gastro-esophageal reflux disease without esophagitis; N40.0 Benign prostatic hyperplasia without lower urinary tract symptoms; E03.9 Hypothyroidism, unspecified; I25.10 Atherosclerotic heart disease of native coronary artery without angina pectoris; N18.9 Chronic kidney disease, unspecified; Z86.73 Personal history of transient ischemic attack (TIA), and cerebral infarction without residual deficits; Z68.20 Body mass index [BMI] 20.0-20.9, adult